=== PATIENT | female | born 1985 | race American Indian/Alaskan Native ===

== ENCOUNTER 2017-02-22 09:01 | Inpatient (IN) | payer MEDICAID ==
[2017-02-22] MEDS ORDERED: ZOFRAN IV PRN (09:15)
[2017-02-22] MEDS ORDERED: MINERAL OIL PO PRN (09:15)
[2017-02-22] MEDS ORDERED: SUBLIMAZE IV PRN (09:15)
[2017-02-22] MEDS ORDERED: BRETHINE SUB-Q PRN (09:15)
[2017-02-22] MEDS ORDERED: XYLOCAINE 2% INFILTRATI ONE (09:15)
[2017-02-22] MEDS ORDERED: ePHEDrine SULFATE IV PRN (09:15)
--- NOTE | 2017-02-22 09:25 | History and Physical Report ---
History of Present Illness Date of examination: 02/22/17 Date of admission: 02/22/17 09:04 Chief complaint: labor ctx @ term History of present illness: EDC Calculations by LMP: 02/24/2017 Past History : 3 Term Births: 2 Living Children: 2 Para: 2 # 1 Delivery date: 2011 Weeks Gestation: term Delivery type: Anesthesia type: none Delivery location: [place] Sex: Male Comments: no complications # 2 Delivery date: 01/2015 Weeks Gestation: term Delivery type: Delivery location: [facility] Sex: Female weight: 6-12 Comments: denies Past Medical History: Reviewed history from 07/09/2014 and no changes required: Negative Past Medical History Past Surgical History: Reviewed history from 07/09/2014 and no changes required: Negative Past Surgical History Past Medical History Abnormal PAP: negative RACHEAL Exposure: negative Infertility: negative Uterine Anomaly: negative Uterine Surgery (not C/S): negative Other Gynecologic Problems: negative Social Hx: Patient is Smoking History: Patient has never smoked. Infection History Hx of STD: none Personal hx. of genital herpes: no Partner hx. of genital herpes: no Rash, Viral, or Febrile illness since last LMP? no Varicella/Chicken Pox Status: Previous Disease Genetic History Congenital Heart Defect: Mom: no Dad: no Omer Disease: Mom: no Dad: no Thalassemia Mom: no Dad: no Neural Tube Defect Mom: no Dad: no Down's Syndrome Mom: no Dad: no Lencho-Sachs Mom: no Dad: no Sickle Cell Disease/Trait Mom: no Dad: no Hemophilia Mom: no Dad: no Muscular Dystrophy Mom: no Dad: no Cystic Fibrosis Mom: no Dad: no [place] Chorea Mom: no Dad: no Mental Retardation Mom: no Dad: no Fragile X Mom: no Dad: no Other Genetic/Chromosomal Disorder Mom: no Dad: no Child w/other defect Mom: no Dad: no Enviromental Exposures Xray Exposure: no Medication, drug, or alcohol use since LMP: no Chemical/Other Exposure: no Exposure to Cat Liter: no Hx of Parvovirus (Fifth Disease): no Occupational Exposure to Children: none 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 Medications: None Current Allergies: No known allergies Past History Past Medical History: no pertinent history - Obstetrical History Expected Date of Delivery: 02/24/17 Actual Gestation: 39 Week(s) 5 Day(s) : 3 Para: 2 Hx # Term Pregnancies: 2 Spontaneous Abortions: 0 Induced : 0 Number of Living Children: 2 Medications and Allergies Active Meds: Active Medications Ephedrine Sulfate (Ephedrine Sulfate) 10 mg IV Q2M PRN PRN Reason: Hypotension Stop: 02/22/17 09:20 Fentanyl (Sublimaze) 100 mcg IV Q2H PRN PRN Reason: Labor Pain Lactated Ringer's (Lactated Ringers) 1,000 mls @ 125 mls/hr IV DIRECT ANNETTE Oxytocin/Sodium Chloride (Pitocin/Ns 20 Unit/1000ml Drip) 20 units in 1,000 mls @ 125 mls/hr IV DIRECT ANNETTE Lidocaine (Xylocaine 2%) 20 ml INFILTRATI ONCE ONE Stop: 02/22/17 09:16 Mineral Oil (Mineral Oil) 30 ml PO QHS PRN PRN Reason: Constipation Ondansetron HCl (Zofran) 4 mg IV Q8H PRN PRN Reason: Nausea And Vomiting Terbutaline Sulfate (Brethine) 0.25 mg SUB-Q ONCE PRN PRN Reason: Hyperstimulation/Hypertonicity Stop: 02/22/17 09:16 Review of Systems All systems: negative - Physical Exam Breasts: Positive: normal Cardiovascular: Regular rate Lungs: Positive: Clear to auscultation, Normal air movement Abdomen: Positive: normal appearance, soft, normal bowel sounds Genitourinary (Female): Positive: normal external genitalia, normal perenium Vulva: both: normal Vagina: Positive: normal moisture Uterus: Positive: normal size, normal contour Anus/Rectum: Positive: normal perianal skin Extremities: Positive: normal Deep Tendon Reflex Grade: Normal +2 - Obstetrical FHR: auscultation normal Uterine Contraction Monitor Mode: External Cervical Dilatation: 8 (AROM - clear) Cervical Effacement Percentage: 100 station: -1 Uterine Contraction Frequency (min): 2.5-3 Uterine Contraction Duration: 60 Uterine Contraction Pattern: Regular Uterine Tone Measurement Phase: Contraction Uterine Contraction Intensity: Strong/Firm Results All other labs normal. Assessment and Plan 31y/o @ 39+5 weeks admitted in active labor - 8cms. Patient does not desire epidural, requests for AROM and IV sedation. Admission orders in EMR, anticipate . Dr. Marya aware. - Patient Problems (1) 39 weeks gestation of Current Visit: Yes Status: Acute (2) Active labor at term Current Visit: Yes Status: Acute
[2017-02-22 09:38] LABS: Hematocrit 33.8 % (30.3-42.9); Mean Corpuscular HGB Conc 33 % (30-34); Mean Corpuscular Hemoglobin 29 pg (28-32); Mean Corpuscular Volume 90 fl (79-97); Red Blood Count 3.78 M/mm3 (3.65-5.03); Red Cell Distribution Width 13.5 % (13.2-15.2); White Blood Count 7.9 K/mm3 (4.5-11.0)
[2017-02-22 09:41] LABS: Platelet Count 96 K/mm3 (140-440)
[2017-02-22] MEDS ORDERED: PITOCin/NS 30 UNIT/500ML 30 UNITS/500 ML BAG IV SCH (10:00)
[2017-02-22] MEDS ORDERED: PITOCin/NS 20 UNIT/1000ML DRIP 20 UNITS/1,000 ML BAG IV SCH ×2 (10:00→13:42)
[2017-02-22] MEDS ORDERED: LACTATED RINGERS 1,000 ML IV SCH (10:00)
--- NOTE | 2017-02-22 11:47 | Procedure Note ---
OB Delivery Note - Delivery Date of Delivery: 02/22/17 ( female) [employer] Technician: SAMANTHA BHANDARI Estimated blood loss: 300cc - Vaginal Delivery presentation: vertex Delivery position: OP Intrapartum events: none Delivery induction: none Delivery augmentation: rupture of membranes, pitocin Delivery monitor: external FHT, external uterine Route of delivery: Delivery placenta: spontaneous Delivery cord: 3 umbilical vessels Episiotomy: none Delivery laceration: none Anesthesia: intravenous Delivery comments: Viable female infant delivered OP over intact perineum. Infant placed skin to skin on mother's abd. 3 vessel cord clamped and cut. Cord blood collected. placenta del intact and complete. No laceration to repair. Pit to IVF, patient assisted to bathroom to void after delivery. EBL 300. baby's weight 6#9oz, Apgars 8/9. Mother and infant remain LDR stable. - A at 1 minute: 8 at 5 minutes: 9 Gender: Female (6#9oz)
[2017-02-22] MEDS ORDERED: LANSINOH TP PRN (13:42)
[2017-02-22] MEDS ORDERED: TYLENOL PO PRN (13:42)
[2017-02-22] MEDS ORDERED: BENADRYL PO PRN (13:42)
[2017-02-22] MEDS ORDERED: SODIUM CHLORIDE FLUSH SYRINGE 10 ML IV NR (13:42)
[2017-02-22] MEDS ORDERED: PHENERGAN PO PRN (13:42)
[2017-02-22] MEDS ORDERED: SOLARCAINE ALOE TP PRN (13:42)
[2017-02-22] MEDS ORDERED: MILK OF MAGNESIA PO PRN (13:42)
[2017-02-22] MEDS ORDERED: TUCKS PAD TP PRN (13:42)
[2017-02-22] MEDS ORDERED: DULCOLAX PR PRN (13:42)
[2017-02-22] MEDS: MOTRIN PO SCH ×2 (13:53→21:43)
[2017-02-22] MEDS: NORCO 5/325 PO PRN ×2 (14:23→21:44)
[2017-02-22 23:02] LABS: Hematocrit 28.5 % (30.3-42.9); Hemoglobin 9.4 gm/dl (10.1-14.3)
[2017-02-23] MEDS: NORCO 5/325 PO PRN (04:45)
[2017-02-23] MEDS: MOTRIN PO SCH ×4 (04:46→23:55)
[2017-02-23] MEDS ORDERED: BOOSTRIX IM ONE (06:00)
--- NOTE | 2017-02-23 08:04 | Progress Note ---
Assessment and Plan Patient doing well, no complaints. without difficulty, Lochia scant, VSSAF, H&H 9.4/28.5 (anemia from blood loss, acute, asymptomatic.) Patient desires d/c home, routine f/u in office 4 weeks. - Patient Problems (1) (normal spontaneous vaginal delivery) Current Visit: Yes Status: Acute Subjective - Subjective Date of service: 02/23/17 Principal diagnosis: day #1 s/p Interval history: EDC Calculations by LMP: 02/24/2017 Past History : 3 Term Births: 2 Living Children: 2 Para: 2 # 1 Delivery date: 2011 Weeks Gestation: term Delivery type: Anesthesia type: none Delivery location: [place] Sex: Male Comments: no complications # 2 Delivery date: 01/2015 Weeks Gestation: term Delivery type: Delivery location: [facility] Infant Sex: Female weight: 6-12 Comments: denies Past Medical History: Reviewed history from 07/09/2014 and no changes required: Negative Past Medical History Past Surgical History: Reviewed history from 07/09/2014 and no changes required: Negative Past Surgical History Past Medical History Abnormal PAP: negative RACHEAL Exposure: negative Infertility: negative Uterine Anomaly: negative Uterine Surgery (not C/S): negative Other Gynecologic Problems: negative Social Hx: Patient is Smoking History: Patient has never smoked. Infection History Hx of STD: none Personal hx. of genital herpes: no Partner hx. of genital herpes: no Rash, Viral, or Febrile illness since last LMP? no Varicella/Chicken Pox Status: Previous Disease Genetic History Congenital Heart Defect: Mom: no Dad: no Omer Disease: Mom: no Dad: no Thalassemia Mom: no Dad: no Neural Tube Defect Mom: no Dad: no Down's Syndrome Mom: no Dad: no Lencho-Sachs Mom: no Dad: no Sickle Cell Disease/Trait Mom: no Dad: no Hemophilia Mom: no Dad: no Muscular Dystrophy Mom: no Dad: no Cystic Fibrosis Mom: no Dad: no [place] Chorea Mom: no Dad: no Mental Retardation Mom: no Dad: no Fragile X Mom: no Dad: no Other Genetic/Chromosomal Disorder Mom: no Dad: no Child w/other defect Mom: no Dad: no Enviromental Exposures Xray Exposure: no Medication, drug, or alcohol use since LMP: no Chemical/Other Exposure: no Exposure to Cat Liter: no Hx of Parvovirus (Fifth Disease): no Occupational Exposure to Children: none 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 Current Allergies: No known allergies Patient reports: appetite normal, voiding normally, pain well controlled, ambulating normally, no dizzy ambulation, no nauseated [place]: doing well, nursing well Objective - Vital Signs Latest vital signs: Vital Signs Temp Pulse Pulse Resp BP BP Pulse Ox 02/23/17 00:20 98.2 F 73 20 119/71 02/22/17 21:35 98.0 F 73 20 126/72 02/22/17 16:10 97.8 F 72 18 132/76 02/22/17 14:00 99.3 F 70 18 114/82 02/22/17 09:59 86 100 02/22/17 09:54 86 100 02/22/17 09:49 76 99 02/22/17 09:34 98.3 F 85 16 125/74 99 02/22/17 09:33 71 125/74 Intake and Output 02/22/17 02/23/17 02/23/17 22:59 06:59 14:59 Intake Total 480 480 Output Total 950 Balance -470 480 Intake: Oral 480 480 Output: Urine 950 Void 600 Other: Total, Intake Amount 240 240 Total, Output Amount 300 Voiding Method Toilet # Voids Void 1 - Exam Breasts: Present: normal, Cardiovascular: Present: Regular rate Lungs: Present: Clear to auscultation, Normal air movement Abdomen: Present: normal appearance, soft Vulva: both: normal Uterus: Present: normal, firm, fundal height at umbilicus Extremities: Present: normal - Labs Labs: Abnormal lab results 02/22/17 02/22/17 Range/Units 08:55 22:49 Hgb 9.4 L (10.1-14.3) gm/dl Hct 28.5 L (30.3-42.9) % Plt Count 96 L (140-440) K/mm3
--- NOTE | 2017-02-23 08:05 | Discharge Summary ---
Providers - Providers Date of Admission: 02/22/17 09:04 Date of discharge: 02/23/17 (desires d/c home today) Attending physician: MARANDA HONG Primary care physician: MARANDA HONG Hospitalization Reason for admission: active labor Delivery: Episiotomy: none Laceration: none Other procedures: none complications: none Discharge diagnosis: IUP at term delivered [place] baby: female Hospital course: uncomplicated vaginal Condition at discharge: Good Disposition: DC-01 TO HOME OR SELFCARE - Discharge Diagnoses (1) (normal spontaneous vaginal delivery) Status: Acute Plan - Provider Discharge Summary Activity: routine, no sex for 6 weeks, no heavy lifting 4 weeks, no strenuous exercise Diet: routine Instructions: routine Additional instructions: [] Smoking cessation referral if applicable(refer to patient education folder for contact #) [] Refer to [facility]'s [facility] Booklet Call your doctor immediately for: * Fever > 100.5 * Heavy vaginal bleeding ( >1 pad per hour) * Severe persistent headache * Shortness of breath * Reddened, hot, painful area to leg or breast * Drainage or odor from incision. * Keep incision clean and dry at all times and follow doctor's instructions regarding bathing/showering - Follow up plan Follow up: MARANDA HONG MD [Primary Care Provider] - 03/24/17 (Congratulations!! Please call [phone] to schedule your visit in 4 weeks. Call for any quesitons or concerns. )
[2017-02-23] MEDS ORDERED: PRENATAL VITAMIN PO SCH (10:00)
[2017-02-24] MEDS: MOTRIN PO SCH (01:45)
[2017-02-24] MEDS: NORCO 5/325 PO PRN (05:36)
[2017-02-24 14:26] VITALS: BP 116/78
--- NOTE | 2017-02-24 15:51 | Discharge Summary ---
Providers - Providers Date of Admission: 02/22/17 09:04 Date of discharge: 02/24/17 Attending physician: MARANDA HONG Primary care physician: MARANDA HONG Hospitalization Reason for admission: other (see discharge information from yesterday) Condition at discharge: Good Disposition: DC-01 TO HOME OR SELFCARE Plan - Provider Discharge Summary Additional instructions: [] Smoking cessation referral if applicable(refer to patient education folder for contact #) [] Refer to [facility] Booklet Call your doctor immediately for: * Fever > 100.5 * Heavy vaginal bleeding ( >1 pad per hour) * Severe persistent headache * Shortness of breath * Reddened, hot, painful area to leg or breast * Drainage or odor from incision. * Keep incision clean and dry at all times and follow doctor's instructions regarding bathing/showering - Follow up plan Follow up: MARANDA HONG MD [Primary Care Provider] - 03/24/17 (Congratulations!! Please call [phone] to schedule your visit in 4 weeks. Call for any quesitons or concerns. ) Forms: [facility] Discharge Summary
== END 2017-02-24 18:40 | disposition home or self-care (01) | DRG 775 ==
LOC: TRG 09:01 → LD 09:04 → TRG 09:04 → OB 13:40
PROVIDERS: ADMIT Obstetrics & Gynecology; ATTEND Obstetrics & Gynecology
PROC: 10E0XZZ Delivery of Products of Conception, External Approach (ICD-10-PCS; principal; 2017-02-22)
DX: O99.03 Anemia complicating the puerperium (principal); D62 Acute posthemorrhagic anemia; Z3A.39 39 weeks gestation of pregnancy; Z37.0 Single live birth
CPT/HCPCS: 36415; 85014; 85018; 85027; 86592; 86850; 86900; 86901; 90715; 99211; G0463; J2590; J3010; J7120